=== PATIENT | female | born 1955 | race Asian ===

== ENCOUNTER 2017-07-30 06:38 | Day surgery (SDC) | payer OTHER ==
[~2017-07-30] VITALS: Ht 142.2 cm; Wt 40.8 kg
[2017-07-30 06:57] VITALS: BP 140/87
[2017-07-30 10:10] VITALS: BP 120/72
== END 2017-07-30 11:10 | disposition home or self-care (01) ==
LOC: GI 06:38 → OR 07:30 → GI 07:30
PROVIDERS: Internal Medicine Gastroenterology
PROC: 0DB68ZX Excision of Stomach, Via Natural or Artificial Opening Endoscopic, Diagnostic (ICD-10-PCS; principal; 2017-07-30 07:30)
PROC: 0DB58ZX Excision of Esophagus, Via Natural or Artificial Opening Endoscopic, Diagnostic (ICD-10-PCS; 2017-07-30 07:30)
PROC: 0D758ZZ Dilation of Esophagus, Via Natural or Artificial Opening Endoscopic (ICD-10-PCS; 2017-07-30 07:30)
DX: K22.4 Dyskinesia of esophagus (principal); R13.10 Dysphagia, unspecified; R10.13 Epigastric pain; E11.9 Type 2 diabetes mellitus without complications; I10 Essential (primary) hypertension; Z68.1 Body mass index [BMI] 19.9 or less, adult
CPT/HCPCS: 43235; J1200; J1610; J2250; J2310; J3010; J3490